=== PATIENT | female | born 1995 | race Caucasian/White ===

== ENCOUNTER 2019-02-06 02:45 | Emergency (ER) | payer OTHER ==
[~2019-02-06] VITALS: Ht 167.6 cm; Wt 49.9 kg
[2019-02-06] MEDS ORDERED: IV NORMAL SALINE 1000 ML BAG IV ONE ×2 (03:00→04:00)
[2019-02-06] MEDS ORDERED: ONDANSETRON 4 MG/2 ML VIAL IV ONE ×2 (03:00→04:00)
[2019-02-06] MEDS ORDERED: DEXT5TAB15 PO (03:00)
[2019-02-06] MEDS ORDERED: KETOROLAC TROMETHAMINE 15 MG INJ IV ONE (03:00)
[2019-02-06] MEDS ORDERED: FLUO20CA36 PO (03:00)
[2019-02-06] MEDS ORDERED: KETOROLAC TROMETHAMINE 30 MG INJ ONE (03:02)
[2019-02-06] MEDS ORDERED: ONDANSETRON 4 MG/2 ML VIAL ONE ×2 (03:02→04:01)
--- NOTE | 2019-02-06 03:05 | NUR ---
Patient bib RA from home for c/o n/v/d x 1-2 hours [employer]. A/Ox4 Speech is clear, speaks in complete sentences. Respiratory even and unlabored, no cough or sob. No cardiovascular distress noted. Patient appeared anxious upon presenting, c/o feeling of having to dry heave and vomit. Patient skin is cool to the touch, states she has not been able to tolerate any type of liquid or food.
[2019-02-06 03:18] LABS: BASOPHILS # (AUTO) 0.1 K/uL (0.0-8.0); BASOPHILS % (AUTO) 0.7 % (0.0-2.0); EOSINOPHILS # (AUTO) 0.2 K/uL (0.0-0.7); EOSINOPHILS % (AUTO) 1.3 % (0.0-7.0); HEMATOCRIT 39.5 % (31.2-41.9); HEMOGLOBIN 13.5 g/dL (10.9-14.3); LYMPHOCYTES # (AUTO) 3.1 K/uL (20.0-40.0); LYMPHOCYTES % (AUTO) 25.8 % (20.5-51.5); MEAN CORPUSCULAR HEMOGLOBIN 31.1 uug (24.7-32.8); MEAN CORPUSCULAR HGB CONC 34 g/dL (32.3-35.6); MEAN CORPUSCULAR VOLUME 91.1 fL (75.5-95.3); MONOCYTES # (AUTO) 0.7 K/uL (2.0-10.0); MONOCYTES % (AUTO) 6.2 % (0.0-11.0); NEUTROPHILS # (AUTO) 7.9 K/uL (1.8-8.9); PLATELET COUNT (AUTO) 210 K/uL (179-408); RED BLOOD CELL COUNT(AUTO) 4.33 MIL/uL (3.63-4.92)
[2019-02-06 03:20] LABS: CARBON DIOXIDE 20 mmol/L (21-32); CHLORIDE 103 mmol/L (98-107); CREATININE 1.1 mg/dL (0.6-1.3); GLUCOSE 109 mg/dL (74-106); POTASSIUM 3.4 mmol/L (3.5-5.1); UREA NITROGEN, BLOOD 13 mg/dL (7-18)
[2019-02-06 03:24] LABS: ALANINE AMINOTRANSFERASE 25 U/L (14-59); ALKALINE PHOSPHATASE 39 U/L (50-136); ASPARTATE AMINOTRANSFERASE 19 U/L (15-37); BILIRUBIN,DIRECT 0.1 mg/dL (0.0-0.2); BILIRUBIN,TOTAL 0.5 mg/dL (0.2-1.0); TOTAL PROTEIN, SERUM 7.7 g/dL (6.4-8.2)
[2019-02-06] MEDS ORDERED: PANTOPRAZOLE SODIUM 40 MG VIAL ONE (06:07)
[2019-02-06] MEDS ORDERED: PANTOPRAZOLE SODIUM 40 MG VIAL IV ONE (06:15)
--- NOTE | 2019-02-06 06:15 | NUR ---
Patient discharged to home in stable conditon. Written and verbal after care instructions given. Patient verbalizes understanding of instructions. Patient ambulated with stable gait. Denies any pain or distress.
[2019-02-06 06:26] VITALS: BP 121/82
== END 2019-02-06 06:30 | disposition home or self-care (01) ==
LOC: ER 02:48
DX: A08.4 Viral intestinal infection, unspecified (principal); F41.9 Anxiety disorder, unspecified; K21.9 Gastro-esophageal reflux disease without esophagitis; Z79.899 Other long term (current) drug therapy
CPT/HCPCS: 36415; 80048; 80076; 84702; 85025; 96361; 96374; 96375; 96376; 99283; C9113; J1885; J2405 ×2; A4663; J7030

== ENCOUNTER 2021-04-04 12:42 | Emergency (ER) | payer OTHER ==
[~2021-04-04] VITALS: Ht 167.6 cm; Wt 49.9 kg
[~2021-04-04 12:42] MED LIST: DEXT5TAB15 PO; FLUO20CA36 PO
[2021-04-04] MEDS ORDERED: HYDROCODONE/APAP 5-325MG TABLET PO ONE (13:15)
[2021-04-04] MEDS ORDERED: ONDANSETRON ODT 4 MG TAB.RAPDIS SL ONE (13:15)
[2021-04-04] MEDS ORDERED: ONDANSETRON ODT 4 MG TAB.RAPDIS ONE (13:17)
[2021-04-04] MEDS ORDERED: HYDROCODONE/APAP 5-325MG TABLET ONE (13:17)
[2021-04-04 13:28] LABS: *URINE HCG, QUAL NEG (NEGATIVE)
[2021-04-04] MEDS ORDERED: ONDA4TAB11 PO (14:27)
[2021-04-04] MEDS ORDERED: HYDR-4209 PO (14:27)
--- NOTE | 2021-04-04 14:42 | NUR ---
Patient discharged to home in stable condition. Written and verbal after care instructions given. Patient verbalizes understanding of instructions. Stressed follow up or return to ER for worsening s/s.pt walks in steady gait.
== END 2021-04-04 14:43 | disposition home or self-care (01) ==
LOC: ER 12:42
DX: S09.90XA Unspecified injury of head, initial encounter (principal); S32.10XA Unspecified fracture of sacrum, initial encounter for closed fracture; W18.39XA Other fall on same level, initial encounter; Y92.031 Bathroom in apartment as the place of occurrence of the external cause; R53.83 Other fatigue; F41.9 Anxiety disorder, unspecified; F90.9 Attention-deficit hyperactivity disorder, unspecified type; Z79.899 Other long term (current) drug therapy; Z87.19 Personal history of other diseases of the digestive system
CPT/HCPCS: 72170; 72220; 84703; A4663; Q0162

== ENCOUNTER → 2022-10-22 | Emergency (ER) | payer OTHER ==
[~2022-10-22] MED LIST changes: +HYDR-4209 PO; +ONDA4TAB11 PO
--- NOTE | 2022-10-22 09:22 | NUR ---
pt not in waiting room when called for triage.
== END | disposition left against medical advice (07) ==
LOC: ER 09:20
DX: Z53.21 Procedure and treatment not carried out due to patient leaving prior to being seen by health care provider (principal)

== ENCOUNTER 2023-10-24 00:31 | Emergency (ER) | payer MEDICAID, OTHER ==
[~2023-10-24] VITALS: Ht 170.2 cm; Wt 52.2 kg
[2023-10-24] MEDS ORDERED: METOCLOPRAMIDE HCL 10 MG/2 ML VIAL ONE (01:04)
[2023-10-24 01:05] LABS: BASOPHILS % (AUTO) 0.2 % (0.0-2.0); EOSINOPHILS # (AUTO) 0.1 K/uL (0.0-0.7); EOSINOPHILS % (AUTO) 0.3 % (0.0-7.0); HEMATOCRIT 35.8 % (31.2-41.9); HEMOGLOBIN 12.4 g/dL (10.9-14.3); LYMPHOCYTES # (AUTO) 0.7 K/uL (0.8-4.8); LYMPHOCYTES % (AUTO) 3.3 % (20.5-51.5); MEAN CORPUSCULAR HEMOGLOBIN 30.8 uug (24.7-32.8); MEAN CORPUSCULAR HGB CONC 35 g/dL (32.3-35.6); MONOCYTES # (AUTO) 1.3 K/uL (0.1-1.30); MONOCYTES % (AUTO) 6.1 % (0.0-11.0); NEUTROPHILS % (AUTO) 90.1 % (38.5-71.5); PLATELET COUNT (AUTO) 167 K/uL (179-408); RED BLOOD CELL COUNT(AUTO) 4.03 MIL/uL (3.63-4.92); RED CELL DISTRIBUTION WIDTH 13.2 % (12.3-17.7); WHITE BLOOD COUNT (AUTO) 22.2 K/uL (3.8-11.8)
[2023-10-24] MEDS ORDERED: HYDROMORPHONE 1 MG/1 ML DISP.SYRIN ONE (01:05)
[2023-10-24] MEDS ORDERED: LORAZEPAM 2 MG/1 ML VIAL ONE (01:05)
[2023-10-24 01:11] LABS: DIFFERENTIAL COMMENT 1
[2023-10-24] MEDS: METOCLOPRAMIDE HCL 10 MG/2 ML VIAL IV ONE (01:17)
[2023-10-24] MEDS: HYDROMORPHONE 1 MG/1 ML DISP.SYRIN IV ONE (01:17)
[2023-10-24] MEDS: LORAZEPAM 2 MG/1 ML VIAL IV ONE (01:17)
[2023-10-24] MEDS: IV LACTATED RINGERS SOLUTION 1,000 ML IV ONE (01:25)
[2023-10-24 01:39] LABS: ALBUMIN 4.4 g/dL (3.4-5.0); BILIRUBIN,DIRECT 0.3 mg/dL (0.0-0.2); BILIRUBIN,TOTAL 1.5 mg/dL (0.2-1.0); CALCIUM 9.2 mg/dL (8.5-10.1); POTASSIUM 3.6 mmol/L (3.5-5.1)
[2023-10-24] MEDS ORDERED: ONDA4TAB11 PO (02:00)
[2023-10-24] MEDS ORDERED: LORA0.5T48 PO (02:00)
[2023-10-24] MEDS ORDERED: DICY20TA11 PO (02:00)
[2023-10-24] MEDS ORDERED: DEXAMETHASONE SOD PHOSPHATE 4 MG INJ ONE (02:12)
[2023-10-24] MEDS: DEXAMETHASONE SOD PHOSPHATE 4 MG INJ IV ONE (02:16)
[2023-10-24 04:01] VITALS: BP 130/76; TEMP 98; O2SAT 100
== END 2023-10-24 04:02 | disposition home or self-care (01) ==
LOC: ER 00:33
DX: R10.9 Unspecified abdominal pain (principal); R11.2 Nausea with vomiting, unspecified; R10.2 Pelvic and perineal pain; Z79.899 Other long term (current) drug therapy
CPT/HCPCS: 36415; 83690; 85025; 93005; A4606; A4663; J1100; J1170; J2060; J2765; J7120